=== PATIENT | female | born 1980 | race Caucasian/White ===

== ENCOUNTER 2017-02-17 09:54 | Emergency (ER) | payer MEDICAID ==
[~2017-02-17] VITALS: Wt 65.0 kg
--- NOTE | 2017-02-17 10:46 | ERD ---
ER Documentation Chief Complaint Date/Time DATE: 02/17/17 TIME: 10:44 Chief Complaint SENT BY OB FOR NO HEART TONES. NO VAG BLEED. NO ABD PAIN HPI Patient is a 36-year-old female, , approximately 14 weeks , who presents to the emergency department with concerns of no heart tones. Patient was sent to the ED by her VICE PRESIDENT OF TALENT ACQUISITION Dr. Marla Smith. Patient states that she saw her VICE PRESIDENT OF TALENT ACQUISITION yesterday. Patient denies any pain. Patient denies any vaginal bleeding. Patient denies any fevers, chills, nausea, vomiting. Patient reports a normal thus far. Patient denies any previous, occasions in prior pregnancies. LMP was on November 10, 2016. ROS All systems reviewed and are negative except as per history of present illness. Medications Home Meds Active Scripts Acetaminophen* (Tylophen*) 500 Mg Capsule, 1 CAP PO Q6H Y for PAIN AND OR ELEVATED TEMP, #20 CAP Prov:BRIAN BERNSTEIN PA-C 02/17/17 Cephalexin* (Keflex*) 500 Mg Capsule, 500 MG PO QID for 7 Days, CAP Prov:BRIAN BERNSTEIN-Lore 02/17/17 PMhx/Soc Medical and Surgical Hx: pt denies Medical Hx, pt denies Surgical Hx Hx Alcohol Use: No Hx Substance Use: No Hx Tobacco Use: No FmHx Family History: No diabetes Physical Exam Vitals Vital Signs Date Time Temp Pulse Resp B/P Pulse Ox O2 Delivery O2 Flow Rate FiO2 02/17/17 10:02 98.4 91 20 128/81 98 Physical Exam GENERAL: Well-developed, well-nourished female. Appears in no acute distress. HEAD: Normocephalic, atraumatic. EYES: Pupils are equally reactive bilaterally. EOMs grossly intact. No conjunctival erythema. ENT: Moist mucous membranes. No uvula deviation. No kissing tonsils. NECK: Supple. No meningismus. Normal range of motion of the neck. LUNG: Clear to auscultation bilaterally. No rhonchi, wheezing, rales or coarse breath sounds. HEART: Regular rate and rhythm. No murmurs, rubs or gallops. ABDOMEN: No scars, ecchymosis or rashes noted. Soft, nontender, and nondistended. Positive bowel sounds in all four quadrants. No rebound tenderness , no guarding. (-) McBurney's point tenderness. No CVA tenderness. BACK: No midline tenderness. EXTREMITIES: Equal pulses bilaterally. No peripheral clubbing, cyanosis or edema. No unilateral leg swelling. NEUROLOGIC: Alert and oriented. Moving all four extremities without any difficulty. Normal speech. Steady gait. SKIN: Normal color. Warm and dry. No rashes or lesions. Result Diagram: 02/17/17 1041 Results 24 hrs Laboratory Tests Test 02/17/17 10:41 White Blood Count 11.010^3/ul Red Blood Count 4.2610^6/ul Hemoglobin 13.0g/dl Hematocrit 37.8% Mean Corpuscular Volume 88.7fl Mean Corpuscular Hemoglobin 30.5pg Mean Corpuscular Hemoglobin Concent 34.4g/dl Red Cell Distribution Width 12.8% Platelet Count 87579^3/UL Mean Platelet Volume 11.1fl Neutrophils % 66.9% Lymphocytes % 23.9% Monocytes % 6.0% Eosinophils % 2.5% Basophils % 0.3% Nucleated Red Blood Cells % 0.0/100WBC Neutrophils # 7.310^3/ul Lymphocytes # 2.610^3/ul Monocytes # 0.710^3/ul Eosinophils # 0.310^3/ul Basophils # 0.010^3/ul Nucleated Red Blood Cells # 0.010^3/ul Urine Color LT. YELLOW Urine Clarity CLEAR Urine pH 6.5 Urine Specific Bryan 1.020 Urine Ketones 15 Urine Nitrite NEGATIVE Urine Bilirubin NEGATIVE Urine Urobilinogen 1.0 E.U./dL Urine Leukocyte Esterase 2+ Urine Microscopic RBC NONE SEEN/HPF Urine Microscopic WBC 2-5/HPF Urine Epithelial Cells MANY Urine Bacteria MANY Urine Hemoglobin NEGATIVE Urine Glucose NEGATIVE% Urine Total Protein NEGATIVE Beta HCG, Quantitative 5762.0mIU/ml Procedures/MDM ED COURSE: The patient was stable throughout ED course. I kept the patient and/or family informed of laboratory and diagnostic imaging results throughout the ED course. DIAGNOSTIC IMAGING: Read by radiologist. DIAGNOSTIC IMAGING REPORT Patient: ROSE MARY FRANCO : 1980 Age: 36 Sex: F MR #: [id number] DOS: 02/17/17 1042 Ordering MD: BRIAN BERNSTEIN PA-C Location: FTE Room/Bed: PROCEDURE: US Pelvis. CLINICAL INDICATION: No heart tones. TECHNIQUE: Multiple real time hawkins-scale sonographic images of the pelvis with Doppler evaluation of the ovaries were obtained utilizing a transabdominal > technique. COMPARISON: None. FINDINGS: The gravid uterus is normal in size. There is a single intrauterine 11 weeks 4 days gestational age by crown-rump length measurements. No heart motion is identified.. No adnexal mass or free fluid. IMPRESSION: 1. Single intrauterine 11 weeks 4 days gestational age. No heart motion identified. These findings are most compatible with demise. Clinical correlation and appropriate follow-up is recommended. RPTAT:AAJJ Joseph Mchugh Physician Date Time Electronically viewed and signed by Physician Trina on 02/17/2017 11:42 SEGUN/ CC: BRIAN BERNSTEIN PA-C PROCEDURES: None. MEDICAL DECISION MAKING: This is a 36-year-old female who presents emergency department for concerns of no heart tones. Patient was referred to the ED by her OB/ EXECUTIVE VICE PRESIDENT BUSINESS DEVELOPMENT. Patient denies any pain or vaginal bleeding.. Vital signs were reviewed. Patient was afebrile. Patient was hemodynamically stable. Urine test was positive. Quantitative b-HCG was 5762. Patient was A+. CBC showed slight elevation in WBC count of 11. This likely due to inflammatory process and related changes. Pelvic US showed Single intrauterine 11 weeks 4 days gestational age. No heart motion identified. These findings are most compatible with demise Given these findings, the patient's presentation is most consistent with demise. I have a much lower clinical concern for ectopic , ruptured ectopic , molar , subchorionic hematoma, complete , anembyronic . I discussed with the patient that she will need to follow-up with her VICE PRESIDENT OF TALENT ACQUISITION for possible D&C and downtrending of B-HCG. At this time there is no indication for emergent D&C given that patient does not have any pain or severe vaginal bleeding. Urinalysis also showed 2+ leukocyte esterase. Patient will be treated for a UTI at this time. Low suspicion for pyelonephritis, nephrolithiasis. PRESCRIPTIONS: Keflex, Tylenol DISCHARGE: At this time, patient is stable for discharge and outpatient management. I have instructed the patient to follow-up with her OBGYN in 1-2 days for further management of her symptoms. Patient advised to follow up with OBGYN for D&C and downtrending of b-HCG. I have instructed the patient to promptly return to the ER at any time for any new or worsening symptoms including increased pain, nausea, vomiting, continued bleeding, weakness, syncope or fever. The patient and/or family expressed understanding of and agreement with this plan. All questions were answered. Home care instructions were provided. Departure Diagnosis: Primary Impression: demise Additional Impression: UTI (urinary tract infection) Urinary tract infection type: site unspecified Hematuria presence: without hematuria Qualified Code: N39.0 - Urinary tract infection without hematuria, site unspecified Condition: Stable Patient Instructions: Miscarriage (Incomplete), Understanding Miscarriage: Recovery Referrals: [facility] VICE PRESIDENT OF TALENT ACQUISITION REFERRAL LIST Additional Instructions: Call your primary care doctor/OBGYN TOMORROW for an appointment during the next 1-2 days.See the doctor sooner or return here if your condition worsens before your appointment time. Patient will need to follow-up with her VICE PRESIDENT OF TALENT ACQUISITION in the next 1 to days for outpatient D&C. BRIAN BERNSTEIN PA-C February 17, 2017 10:46
[2017-02-17 11:11] LABS: ADD SCAN DIFF NO
[2017-02-17 11:16] LABS: BASOPHILS % 0.3 % (0.0-2.0); EOSINOPHILS # 0.3 10^3/ul (0.0-0.5); EOSINOPHILS % 2.5 % (0.0-7.0); HEMATOCRIT 37.8 % (37.0-47.0); LYMPHOCYTES # 2.6 10^3/ul (0.8-2.9); LYMPHOCYTES % 23.9 % (15.0-51.0); MEAN CORPUSCULAR HEMOGLOBIN 30.5 pg (29.0-33.0); MEAN CORPUSCULAR HGB CONC 34.4 g/dl (32.0-37.0); MEAN CORPUSCULAR VOLUME 88.7 fl (82.0-101.0); MEAN PLATELET VOLUME 11.1 fl (7.4-10.4); MONOCYTE # 0.7 10^3/ul (0.3-0.9); NEUTROPHIL # 7.3 10^3/ul (1.6-7.5); NEUTROPHILS % 66.9 % (39.0-77.0); PLATELET COUNT 269 10^3/UL (140-415); RED BLOOD COUNT 4.26 10^6/ul (4.20-5.40); RED CELL DISTRIBUTION WIDTH 12.8 % (11.5-14.5)
--- NOTE | 2017-02-17 11:43 | RADRPT ---
PROCEDURE: US Pelvis. CLINICAL INDICATION: No heart tones. TECHNIQUE: Multiple real time hawkins-scale sonographic images of the pelvis with Doppler evaluation of the ovaries were obtained utilizing a transabdominal> technique. COMPARISON: None. FINDINGS: The gravid uterus is normal in size. There is a single intrauterine 11 weeks 4 days gesta tional age by crown-rump length measurements. No heart motion is identified.. No adnexal mas s or free fluid. IMPRESSION: 1. Single intrauterine 11 weeks 4 days gestational age. No heart motion identified. These findings are most compatible with demise. Clinical correlation and appropriate follow -up is recommended. RPTAT:AAJJ Joseph Mchugh Physician Date Time Electronically viewed and signed by Physician Trina on 02/17/2017 11:42 SEGUN/
[2017-02-17 11:54] LABS: ADD UMIC YES; URINE BILIRUBIN (Dip) NEGATIVE (NEGATIVE); URINE BLOOD (Dip) NEGATIVE (NEGATIVE); URINE COLOR LT. YELLOW (YELLOW); URINE GLUCOSE (Dip) NEGATIVE (NEGATIVE); URINE KETONES (Dip) 15 (NEGATIVE); URINE LEUKOCYTE ESTERASE (Dip) 2+ (NEGATIVE); URINE NITRITE (Dip) NEGATIVE (NEGATIVE); URINE TOTAL PROTEIN (Dip) NEGATIVE (NEGATIVE); URINE UROBILINOGEN (Dip) 1.0 E.U./dL (0.1-1.0)
[2017-02-17] MEDS ORDERED: CEPH-443 PO (12:17)
[2017-02-17] MEDS ORDERED: ACET500C5 PO (12:18)
[2017-02-17 12:45] LABS: BACTERIA,URINE MANY; URINE RBCS NONE SEEN /HPF (0)
== END 2017-02-17 12:31 | disposition home or self-care (01) ==
LOC: FTE 09:54
DX: O02.1 Missed abortion (principal); O23.41 Unspecified infection of urinary tract in pregnancy, first trimester
CPT/HCPCS: 36415; 76801; 81001; 81003; 84702; 85025; 86900; 86901; Z7502

== ENCOUNTER 2017-02-27 09:01 | Emergency (ER) | payer MEDICAID ==
[~2017-02-27] VITALS: Ht 165.1 cm; Wt 86.0 kg
[~2017-02-27 09:01] MED LIST: ACET500C5 PO; CEPH-443 PO
[2017-02-27 09:18] VITALS: Ht 165.1 cm; Wt 86.0 kg
--- NOTE | 2017-02-27 10:35 | RADRPT ---
PROCEDURE: US Pelvis. CLINICAL INDICATION: Severe vaginal bleeding, pain. TECHNIQUE: Multiple sonographic images of the pelvis were obtained utilizing a transabdominal and endovaginal technique. The images were reviewed on a PACS workstation. COMPARISON: 02/17/2017 FINDINGS: The uterus is visualized and measures 13.3 x 7.7 x 9.4 cm. The endometrial echo complex is moderatel y prominent heterogeneous in echotexture 33.9 mm. No evidence of intrauterine gestational sac. There is no evidence for free fluid. The right ovary has a normal echotexture and measures 2.2 x 1.5 x 1. 7 cm. The left ovary has a normal echotexture and measures 3.3 x 1.8 x 2.2 cm. No adnexal masses a re noted. IMPRESSION: 1. Findings consistent with interval completed spontaneous AB. Correlate with quantitative beta HCG s. 2. Prominent, heterogeneous endometrial canal complex raises the question of possible retained prod ucts of conception. RPTAT: AACC Physician Juliana Date Time Electronically viewed and signed by Physician Juliana on 02/27/2017 10:34 /
[2017-02-27 10:48] LABS: ADD SCAN DIFF NO
[2017-02-27 10:51] LABS: BASOPHILS % 0.1 % (0.0-2.0); EOSINOPHILS # 0.1 10^3/ul (0.0-0.5); EOSINOPHILS % 0.7 % (0.0-7.0); HEMATOCRIT 36.7 % (37.0-47.0); HEMOGLOBIN 12.3 g/dl (12.0-16.0); LYMPHOCYTES # 1.7 10^3/ul (0.8-2.9); LYMPHOCYTES % 12.6 % (15.0-51.0); MEAN CORPUSCULAR HEMOGLOBIN 29.9 pg (29.0-33.0); MEAN CORPUSCULAR HGB CONC 33.5 g/dl (32.0-37.0); MEAN CORPUSCULAR VOLUME 89.3 fl (82.0-101.0); MEAN PLATELET VOLUME 10.9 fl (7.4-10.4); MONOCYTE # 0.4 10^3/ul (0.3-0.9); MONOCYTES % 3.3 % (0.0-11.0); NEUTROPHIL # 11.1 10^3/ul (1.6-7.5); NEUTROPHILS % 82.9 % (39.0-77.0); PLATELET COUNT 273 10^3/UL (140-415); RED BLOOD COUNT 4.11 10^6/ul (4.20-5.40); RED CELL DISTRIBUTION WIDTH 12.8 % (11.5-14.5); WHITE BLOOD COUNT 13.4 10^3/ul (4.8-10.8)
[2017-02-27] MEDS ORDERED: IBUP800T25 PO (13:12)
[2017-02-27 13:40] VITALS: BP 125/61; PULSE 80; RESP 18
--- NOTE | 2017-02-27 14:26 | ERD ---
ER Documentation Chief Complaint Date/Time DATE: 02/27/17 TIME: 14:19 Chief Complaint PT VB since 0700 this morning, pt lost baby on 02/17/17. HPI This is a 36-year-old female presenting to emergency department for vaginal bleeding 2 hours. Patient had a recent incomplete spontaneous on 2016. Patient initially came in to the ER at that time for no heart tones detected on OB ultrasound. Patient then began having bleeding today. Patient states she is having severe bleeding and soaking through for pads per hour. Patient also reports passing multiple large clots. Patient is having menstrual type cramping pelvic pain. Patient rates pain 7/10. Patient's OB/ ONLINE PRODUCER is Dr. Smith. Denies dysuria or hematuria. Patient did not take any medication at home for this. Patient is scheduled for D&C tomorrow at [facility]. ROS All systems reviewed and are negative except as per history of present illness. Medications Home Meds Active Scripts Ibuprofen* (Motrin*) 800 Mg Tab, 800 MG PO Q6, #15 TAB Prov:DODIE KWAN NP 02/27/17 Acetaminophen* (Tylophen*) 500 Mg Capsule, 1 CAP PO Q6H Y for PAIN AND OR ELEVATED TEMP, #20 CAP Prov:BRIAN BERNSTEIN PA-C 02/17/17 Cephalexin* (Keflex*) 500 Mg Capsule, 500 MG PO QID for 7 Days, CAP Prov:BRIAN EBRNSTEIN PA-C 02/17/17 PMhx/Soc Medical and Surgical Hx: pt denies Medical Hx, pt denies Surgical Hx Hx Alcohol Use: No Hx Substance Use: No Hx Tobacco Use: No Smoking Status: Never smoker Physical Exam Vitals Vital Signs Date Time Temp Pulse Resp B/P Pulse Ox O2 Delivery O2 Flow Rate FiO2 02/27/17 13:40 80 18 125/61 100 Room Air 02/27/17 09:18 99.3 125 18 151/99 99 Physical Exam Const: alert, crying Head: Atraumatic Eyes: Normal Conjunctiva ENT: Normal External Ears, Nose and Mouth. Neck: Full range of motion..~ No meningismus. Resp: Clear to auscultation bilaterally Cardio: Regular rate and rhythm, no murmurs Abd: Soft, non distended. Normal bowel sounds, suprapubic tenderness to palpation Skin: No petechiae or rashes Back: No midline or flank tenderness Ext: No cyanosis, or edema Neur: Awake and alert Psych: Normal Mood and Affect Result Diagram: 02/27/17 1041 Results 24 hrs Laboratory Tests Test 02/27/17 10:41 White Blood Count 13.410^3/ul Red Blood Count 4.1110^6/ul Hemoglobin 12.3g/dl Hematocrit 36.7% Mean Corpuscular Volume 89.3fl Mean Corpuscular Hemoglobin 29.9pg Mean Corpuscular Hemoglobin Concent 33.5g/dl Red Cell Distribution Width 12.8% Platelet Count 52890^3/UL Mean Platelet Volume 10.9fl Neutrophils % 82.9% Lymphocytes % 12.6% Monocytes % 3.3% Eosinophils % 0.7% Basophils % 0.1% Nucleated Red Blood Cells % 0.0/100WBC Neutrophils # 11.110^3/ul Lymphocytes # 1.710^3/ul Monocytes # 0.410^3/ul Eosinophils # 0.110^3/ul Basophils # 0.010^3/ul Nucleated Red Blood Cells # 0.010^3/ul Beta HCG, Quantitative 478.7mIU/ml Procedures/MDM Patient: ROSE MARY FRANCO : 1980 Age: 36 Sex: F [id number] DOS: 02/27/17 0943 Ordering MD: DODIE KWAN NP Location: FTE Room/Bed: PROCEDURE: US Pelvis. CLINICAL INDICATION: Severe vaginal bleeding, pain. TECHNIQUE: Multiple sonographic images of the pelvis were obtained utilizing a transabdominal and endovaginal technique. The images were reviewed on a PACS workstation. COMPARISON: 02/17/2017 FINDINGS: The uterus is visualized and measures 13.3 x 7.7 x 9.4 cm. The endometrial echo complex is moderately prominent heterogeneous in echotexture 33.9 mm. No evidence of intrauterine gestational sac. There is no evidence for free fluid. The right ovary has a normal echotexture and measures 2.2 x 1.5 x 1.7 cm. The left ovary has a normal echotexture and measures 3.3 x 1.8 x 2.2 cm. No adnexal masses are noted. IMPRESSION: 1. Findings consistent with interval completed spontaneous AB. Correlate with quantitative beta HCGs. 2. Prominent, heterogeneous endometrial canal complex raises the question of possible retained products of conception. MDM: 36-year-old female presents emergency department for vaginal bleeding 2 hours. Patient had recent incomplete spontaneous on 02/17/2017. Patient is scheduled for D&C tomorrow at [facility]. Labs are unremarkable. No significant anemia or infection. OB ultrasound reviewed by radiologist as findings consistent with interval completed spontaneous . Prominent, heterogeneous endometrial canal complex raises the question of possible retained products of conception. Beta- hCG 478.7. Consulted Dr. Coker. Dr. Coker came and examined patient at bedside. We agree that patient is appropriate for outpatient management. Vital signs are stable. Patient is afebrile. Differential diagnosis includes but not limited to retained products of conception, subchorionic hemorrhage, ruptured ovarian cyst, UTI or pyelonephritis. Patient is appropriate for outpatient management and will be given prescription for ibuprofen. Instructed patient to follow-up here in the ED in 2 days. Return to ED sooner for any high fever, chest pain, difficulty breathing, shortness breath, wheezing, vomiting, diarrhea, abdominal pain or any new or worsening symptoms. Patient verbalizes understanding. All questions answered at discharge. Departure Diagnosis: Primary Impression: Vaginal bleeding Condition: Stable Patient Instructions: Dilation and Curettage (D and C) [facility] ted se phan hecho un examen mdico de control que le indica que no est en stoney condicin que requiera tratamiento urgente en el Departamento de Emergencia. Un estudio ms profundo y el tratamiento de schwartz condicin pueden esperar sin ningn riesgo hasta que usted sea atendida/o en el consultorio de schwartz mdico o stoney cl margie. Es responsabilidad suya arreglar stoney shaquille para el seguimiento del kristine. MANEJO DE CONDICIONES NO URGENTES EN EL FUTURO 1) Si usted tiene un mdico de atencin primaria: Usted debera llamar a schwartz mdico de atencin primaria antes de venir al departamento de emergencia. Despus de las horas de consultorio, schwartz doctor o schwartz asociado/a est disponible por telfono. El mdico o enfermero de diana en el servicio telefnico puede asesorarle por minnie medio para atender el problema, o kristine contrario se puede programar stoney shaquille. 2) Si usted no tiene un mdico de atencin primaria: Llame al mdico o clnica de referencia que aparece abajo lily las horas de consultorio para hacer stoney shaquille para que le vean. CLINICAS: [facility] [phone] [facility] [phone] [place] [address]87 [phone] [facility] [place] [phone] [facility] [place] [id number] [phone] [facility] 017 [phone] [facility]. [facility] () Usted se phan hecho un examen mdico de control que le indica que no est en stoney condicin que requiera tratamiento urgente en el Departamento de Emergencia. Un estudio ms profundo y el tratamiento de schwartz condicin pueden esperar sin ningn riesgo hasta que usted sea atendida/o en el consultorio de schwartz mdico o stoney cl margie. Es responsabilidad suya arreglar stoney shaquille para el seguimiento del kristine. MANEJO DE CONDICIONES NO URGENTES EN EL FUTURO 1) Si usted tiene un mdico de atencin primaria: Usted debera llamar a schwartz mdico de atencin primaria antes de venir al departamento de emergencia. Despus de las horas de consultorio, schwartz doctor o schwartz asociado/a est disponible por telfono. El mdico o enfermero de diana en el servicio telefnico puede asesorarle por minnie medio para atender el problema, o kristine contrario se puede programar stoney shaquille. 2) Si usted no tiene un mdico de atencin primaria: Llame al mdico o condado institucions de referencia que aparece abajo lily las horas de consultorio para hacer stoney shaquille para que le vean. SI USTED NO PUEDE PAGAR PARA DIAZ UN MEDICO puede ir a: [facility] [address] [place] [address] [facility] [address] [place] [address] [facility] [address] [place] [address] [address] [facility] [address] [place] [address] Additional Instructions: Seguimiento maana con FINISHING PAN OPERATOR procedimiento programado. Regresar a ED por fiebre saul, dolor en el pecho, dificultad para respirar, respiracin entrecortada, sibilancias, vmitos, diarrea, dolor abdominal o cualquier sntoma nuevo o que empeora. DODIE KWAN NP February 27, 2017 14:26
--- NOTE | 2017-02-27 18:23 | QN ---
Documentation Comment pt with ho of missed ab at 11 weeks and presents post spontaneuos sab minimal bleeding and cramping vss exam wnl US wnl a/p status post complete SAB-pt minimal bleeding and no cramping dc home fu with ob in 1-2 days JOHNSON EUBANKS MD February 27, 2017 18:23
== END 2017-02-27 13:40 | disposition home or self-care (01) ==
LOC: FTE 09:01
DX: N93.9 Abnormal uterine and vaginal bleeding, unspecified (principal); R10.2 Pelvic and perineal pain
CPT/HCPCS: 76830; 76856; 84702; 85025; Z7502